=== PATIENT | female | born 1995 | race Caucasian/White ===

== ENCOUNTER 2016-10-21 12:35 | Emergency (ER) | payer SELFPAY ==
[2016-10-21] MEDS ORDERED: HYDROCODONE/ACETAMINOPHEN 5/325MG TABLET ONE (13:08)
[2016-10-21] MEDS ORDERED: KETOROLAC TROMETHAMINE 30 MG/ML 1 ML VIAL ONE (13:08)
== END 2016-10-21 13:21 | disposition home or self-care (01) ==
LOC: ED 12:35
DX: M54.5 Low back pain (principal); E66.9 Obesity, unspecified
CPT/HCPCS: 99283 ×2; 96372; J1885; A9270